=== PATIENT | male | born 1930 | race Caucasian/White ===

== ENCOUNTER 2017-01-01 09:59 | Inpatient (IN) | payer OTHER ==
[~2017-01-01] VITALS: Ht 10 cm; Wt 73.5 kg
--- NOTE | ~2017-01-01 | EKG ---
[address] [place] [address] ELECTROCARDIOGRAM REPORT Name: SANDHYA CA Room #: REG ALIE Sanchez#: [id number] Admission: 01/01/17 Attend Phys: Discharge: Date of : 32 Report #: [id number] THIS REPORT FOR: //name// [facility] ED Test Date: 2017-01-01 Test Time: 11:03:05 Pat Name: SANDHYA CA Department: Room: Gender: M Material Analyst: [id number] : 1930 Requested By: Monica Garcia Order Number: [id number] MD: Adonay Robbins Measurements Intervals [place] Rate: 85 P: 77 WA: 161 QRS: 25 QRSD: 89 T: 52 QT: 397 QTc: 472 Interpretive Statements Sinus rhythm No previous ECG available for comparison Electronically Signed On 01-01-2017 14:14:12 CDT by Adonay Robbins [email or web address] <ELECTRONICALLY SIGNED> By: Adonay Robbins MD 01/01/17 1414 1103 [id number] Adonay Robbins MD /EPI
--- NOTE | ~2017-01-01 | HC ---
[facility] [place] [address] [place] [address] CONSULTATION Name: LANNYSANDHYA Room #: 411-P ADM IN M.R.#: [id number] Admission: 01/01/17 Attend Phys: Jake Garcia Discharge: Date of : 32 Report #: [id number] THIS REPORT FOR: //name// CC: Jake Mahan REASON FOR CONSULTATION: Metastatic or unresectable pancreatic cancer. HISTORY OF PRESENT ILLNESS: The patient is an 86-year-old gentleman whom I met for the first time this past summer with unresectable pancreatic cancer; he elected to go with alternative therapy. I had seen him again 3 days ago on Sunday when he came in with progressive pain and nausea from that pain. We had begun him on hydrocodone at that time, he seemed to do better for a few days, but got worse over the weekend and was admitted for dehydration and uncontrolled pain. Note that his is present for much of the discussion. The patient was having back pain and had evaluation in August 2016 at [facility]. CAT scan done on August 31 showed a hypoenhancing mass at the pancreas. There was also involvement of the splenic veins and thought to be unresectable. The patient elected to go with alternative therapy. Recently, the patient had been having progressive pain both in the back and the abdomen and nausea that he says was slightly better when he drank ____ fluid, but then worse afterwards. He has also had trouble with constipation. No fevers, no chills. No new arm or leg swelling. Urine has been normal; color is little bit dark from dehydration. Decreased appetite; has had maybe about a 15-pound weight loss. PAST MEDICAL HISTORY: Notable for the pancreatic cancer, dehydration, also history of prostate cancer in 2009 treated with radiation therapy, history of coronary artery disease with a stent in 2009 and 2010, type 2 diabetes, BPH and peripheral vascular disease. FAMILY HISTORY: Noncontributory. SOCIAL HISTORY: He is retired. MEDICATIONS: At this time in the hospital currently include Lovenox 40 mg at bedtime, morphine sulfate 2 mg q. 4 IV p.r.n., hydrocodone 1 tab q. 4 p.r.n., zolpidem 5 mg at bedtime p.r.n., MiraLax 17 grams daily, Zofran p.r.n., nitroglycerin p.r.n., IV fluids, hydromorphone was given in ER LABORATORY DATA: Tests here include BUN of 19, creatinine of 1, glucose of 346. Transaminases, total bilirubin and alk phos normal. Albumin is 3.4. White count 13.7, hemoglobin 12.2, platelets 167. Differential fairly unremarkable. PHYSICAL EXAMINATION: [facility] [address] [place] [address] CONSULTATION Name: SANDHYA CA Room #: 411-P ADM IN M.R.#: [id number] Admission: 01/01/17 Attend Phys: Jake Garcia Discharge: Date of : 32 Report #: [id number] GENERAL: The patient appears his stated age. He is alert and oriented. VITAL SIGNS: Height is 5 feet 10, which is 177.8 cm; weight 162 pounds, which is 73.5 kilograms; blood pressure is 139/62; O2 sat 100%; respirations 17; pulse 86; temperature afebrile at 98.2. NEUROLOGIC: Face is symmetric. Moving all extremities. Speech and thought pattern normal. LUNGS: Clear on auscultation without rales, rhonchi or wheezes. HEART: Regular rate. LYMPHATICS: No enlarged lymph nodes except there are some small ones in the left axilla, ____ nonsignificant. ABDOMEN: Scaphoid, no masses. He is tender in the epigastric region. EXTREMITIES: Without clubbing, cyanosis or edema. DISCUSSION: I discussed with the patient's family as we had on Sunday that this is unresectable. He is not interested in chemotherapy, which I think is very reasonable. I am afraid that would probably make him sick and interfere with nausea and pain control with chemo. I think also at his age he would probably not tolerate chemo well. He had also had a discussion yesterday with Dr. Avery and I think palliative care approach is very appropriate and reasonable. ASSESSMENT AND PLAN: 1. Unresectable pancreatic cancer. We will plan on hospice visit and ask social work to help arrange. 2. Pain management. Continue with fentanyl 25 mcg patch. Note that narcotic usage since ____ has been greatly decreased. We will continue with p.r.n. meds. 3. Constipation. MiraLax available. 4. Dyspepsia. We will add Pepcid and continue GI cocktail on a regular basis. 5. History of prostate cancer, not recurrent. 6. Type 2 diabetes. Management per others. 7. History of coronary artery disease, not currently an issue. Defer to others. <ELECTRONICALLY SIGNED> By: Gustavo Robins MD 01/02/17 1734 [id number] Gustavo Robins MD /nt
--- NOTE | ~2017-01-01 | HC ---
[facility] [place] [address] [place] [address] CONSULTATION Name: SANDHYA CA Room #: 411-P ADM IN M.R.#: [id number] Admission: 01/01/17 Attend Phys: Jake Garcia Discharge: Date of : 32 Report #: [id number] THIS REPORT FOR: //name// CC: Jake Mahan DATE OF SERVICE: 01/01/2017 PALLIATIVE CARE CONSULTATION REQUESTING PHYSICIAN: Jake Garcia MD HISTORY OF PRESENT ILLNESS: The patient presented to [facility] this evening on 01/01/2017. He has a history of pancreatic cancer. He reports that this had been diagnosed in September. He has been to an oncologist subsequently, but is not interested in pursuing additional treatment at this time. The patient states that he understands that this pancreatic cancer will take his life and that he is interested in further care to make him comfortable. The patient has had a poor p.o. intake and that is his biggest concern prior to arrival. In fact, last night he had a 46 on his blood sugar due to this. The patient states that he is feeling increasingly thirsty at all times. In laboratory exam, he had 3+ ketones in his urine, noted though to have a creatinine of 1.0. The patient states that he is not in significant pain at this time. He states it is 3/10 after receiving medication, although he has been on chronic pain secondary to this cancerous process. Denies nausea currently. Denies shortness of breath. PAST MEDICAL HISTORY: Diabetes mellitus recorded as type 1, unknown exact type at this time; pancreatic cancer and history of anemia. ALLERGIES: Reviewed today. MEDICATIONS: Reviewed. FAMILY HISTORY: Noncontributory. SOCIAL HISTORY: He is . He is a . 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 Not currently smoking. REVIEW OF SYSTEMS: GENERAL: The patient does report weight loss. Denies fevers or chills currently. RESPIRATORY: Denies shortness of breath, cough or wheezing. CARDIOVASCULAR: Denies chest pain, palpitations or significant edema. ABDOMEN: Denies diarrhea. Does have some constipation episodes. Does have [facility] [address] [place] [address] CONSULTATION Name: SANDHYA CA Room #: 411-P [facility] IN M.R.#: [id number] Admission: 01/01/17 Attend Phys: Jake Garcia Discharge: Date of : 32 Report #: [id number] occasional nausea, but none currently. Does have abdominal pain, which appears to be epigastric in origin. MUSCULOSKELETAL: Reports generalized weakness. PHYSICAL EXAMINATION: VITAL SIGNS: Temperature 36.6, pulse 89, respirations 17, blood pressure 107/43 and 95% on room air. GENERAL: The patient appears to have generalized cachexia. No acute distress. HEENT: No scleral icterus and no jaundice noted. CARDIOVASCULAR: Regular rate and rhythm without murmur. LUNGS: Clear to auscultation bilaterally. No wheezes, rales or rhonchi. ABDOMEN: Soft. Tenderness in epigastric area. Diminished bowel sounds noted. LABORATORY DATA: These include a white blood cell 13.7, hemoglobin 12.2, platelets 117, creatinine 1.0 and 3+ ketones on UA. ASSESSMENT AND PLAN: Pancreatic cancer. At this time, the patient is interested in pursuing hospice care whether that would be at home or in an inpatient setting, though we did have extensive discussion about this today and spent approximately 20 minutes on this discussion with the patient. The patient would like to discuss further with his spouse. I will attempt to do this on Sunday when I am back in the vicinity. At this time focusing on stabilization of his discomfort is a high priority. I discussed that medications that can be absorbed orally and/or administered in low amounts for high impact can be administered even orally at home. The patient is amenable to this and this was one of his largest concerns. The other concern that he has is his accepting hospice care as he believes that treatment will be possible for his current condition despite the worsening of it overall. We will have further re-discussion with her at meeting hopefully on Sunday. I thank you for this consultation and the opportunity to speak with this gentleman. Please contact me for any questions regarding this consultation. We will again discuss further on Sunday. By: 05 [id number] Chan Avery DO /nt
[2017-01-01 10:01] VITALS: BP 123/55
[2017-01-01] MEDS ORDERED: NORCO 5-325 TA1 EACH PO (10:04)
[2017-01-01 11:26] LABS: ABSOLUTE NEUTROPHILS 10.8 thou/uL (1.4-8.2); BASOPHILS 0.3 % (0.0-2.0); EOSINOPHILS 1.1 % (0.0-3.0); HEMATOCRIT 36.4 % (42.0-52.0); HEMOGLOBIN 12.2 gm/dL (14.0-18.0); LYMPHOCYTES 11.7 % (24.0-44.0); MCH 31.9 pg (26.0-34.0); MCHC 33.6 g/dL (28.0-37.0); MCV 94.9 fL (80.0-100.0); MONOCYTES 7.7 % (1.0-8.0); PLATELET COUNT 167 thou/uL (150-400); POLYS 79.2 % (36.0-66.0); RBC 3.83 mil/uL (4.50-6.00); RDW 14.2 % (10.5-14.5); WBC 13.7 thou/uL (4.0-11.0)
[2017-01-01 11:29] LABS: MANUAL DIFF NO
[2017-01-01 11:39] LABS: CALCIUM 8.9 mg/dL (8.5-10.1); POTASSIUM 4.9 mmol/L (3.5-5.1)
[2017-01-01 11:43] LABS: ALBUMIN 3.4 g/dL (3.4-5.0); DIRECT BILIRUBIN 0.2 mg/dL (<0.1-0.3); TOTAL BILIRUBIN 0.9 mg/dL (<0.1-1.0); TOTAL PROTEIN 5.8 g/dL (6.4-8.2)
[2017-01-01 14:24] LABS: URINE BILIRUBIN NEGATIVE (Negative); URINE BLOOD NEGATIVE (Negative); URINE COLOR YELLOW; URINE GLUCOSE-RANDOM* 2+ (Negative); URINE KETONES 3+ (Negative); URINE LEUKOCYTES-REFLEX NEGATIVE (Negative); URINE PROTEIN (DIPSTICK) NEGATIVE (Negative); URINE UROBILINOGEN 0.2 E.U./dl (0.2-1.0)
[2017-01-01 18:15] VITALS: BP 121/47
[2017-01-01 18:39] VITALS: BP 121/47
[2017-01-01 20:45] VITALS: BP 138/57
[2017-01-01 23:55] VITALS: BP 127/60
[2017-01-02 05:35] VITALS: BP 139/62
[2017-01-02 08:45] VITALS: BP 152/57
[2017-01-02 15:45] VITALS: BP 135/45
[2017-01-02 20:00] VITALS: BP 126/41
[2017-01-03 05:15] VITALS: BP 118/36
[2017-01-03 07:35] VITALS: BP 124/45
[2017-01-03] MEDS ORDERED: DURAGESIC1 EAC1 TRANSDERM (10:52)
[2017-01-03] MEDS ORDERED: MSL20MG/ML SUBLING (10:52)
[2017-01-03] MEDS ORDERED: AMBIEN 10 MG TA10 MG PO (10:53)
[2017-01-03] MEDS ORDERED: MIRALAX17 GM PO (10:53)
[2017-01-03] MEDS ORDERED: PEPCID20 MG PO (10:53)
[2017-01-03] MEDS ORDERED: REGLAN 10 MG TA10 MG PO (10:54)
[2017-01-03] MEDS ORDERED: HUMALOG100 UNIT/1 SUBQ (10:54)
[2017-01-03 11:09] VITALS: BP 124/45
[2017-01-03 18:46] VITALS: BP 124/45
== END 2017-01-03 16:50 | disposition hospice, home (50) | DRG 435 ==
LOC: ER 09:59 → EROBS 13:52 → 4N 13:52
PROVIDERS: Emergency Medicine
DX: C25.9 Malignant neoplasm of pancreas, unspecified (principal); I81 Portal vein thrombosis; I25.10 Atherosclerotic heart disease of native coronary artery without angina pectoris; Z51.5 Encounter for palliative care; E10.51 Type 1 diabetes mellitus with diabetic peripheral angiopathy without gangrene; N40.0 Benign prostatic hyperplasia without lower urinary tract symptoms; K59.00 Constipation, unspecified; Z85.46 Personal history of malignant neoplasm of prostate; Z92.3 Personal history of irradiation; Z95.5 Presence of coronary angioplasty implant and graft; Z79.899 Other long term (current) drug therapy; Z88.0 Allergy status to penicillin
CPT/HCPCS: 10091